=== PATIENT | female | born 1985 | race Caucasian/White ===

== ENCOUNTER 2021-02-09 12:44 | Emergency (ER) | payer SELFPAY ==
[~2021-02-09] VITALS: Ht 149.9 cm; Wt 47.6 kg
--- NOTE | 2021-02-09 12:49 | ED General ---
General Stated Complaint: WEAKNESS; VOMITING History of Present Illness Date Seen by Provider: Feb 09, 2021 Time Seen by Provider: 12:50 Initial Comments 35-year-old female presents with 2 days of vomiting and feels she is dehydrated. Patient's grandmother 2 days ago and asked when symptoms started. Patient provides limited HPI and history. Patient appears to have some slight confusion/altered mental status versus may be developmental delay but we have no prior history to compare with. Patient looks off to the right. Patient denies abdominal pain. Patient reports that she is used to do a lot of alcohol in the past but denies any recent. She will not answer when asked about any drug use. Patient denies any medicine or medical history. Patient ambulated to the cot from EMS with no difficulties Allergies and Home Medications Allergies Coded Allergies: No Known Drug Allergies (Unverified , 02/09/21) Patient Home Medication List Home Medication List Reviewed: Yes Review of Systems Review of Systems Constitutional: chills, malaise EENTM: no symptoms reported Respiratory: no symptoms reported Cardiovascular: no symptoms reported Gastrointestinal: No abdominal pain; nausea, vomiting Musculoskeletal: no symptoms reported Skin: no symptoms reported Psychiatric/Neurological: No Symptoms Reported Hematologic/Lymphatic: No Symptoms Reported Physical Exam Vital Signs Vital Signs - First Documented 02/09/21 12:45 Temp 36.7 Pulse 102 Resp 18 B/P (MAP) 136/90 (105) Pulse Ox 99 O2 Delivery Room Air Capillary Refill : Height, Weight, BMI Height: '" Weight: lbs. oz. kg; BMI Method: General Appearance: Thin, Other (Patient seems confused, keeps her gaze shift rightward. ) Respiratory: Lungs Clear, Normal Breath Sounds Cardiovascular: Regular Rate, Rhythm, No Edema Gastrointestinal: Non Tender, Soft Extremity: Normal Capillary Refill Neurologic/Psychiatric: No Motor/Sensory Deficits, Other (Confused/altered mental versus possible developmental delay, severe depression) Skin: Normal Color, Warm/Dry Progress/Results/Core Measures Suspected Sepsis SIRS Temperature: Pulse: Respiratory Rate: Laboratory Tests 02/09/21 12:53: White Blood Count 8.8 Blood Pressure / Mean: Laboratory Tests 02/09/21 12:53: Creatinine 0.50L, Platelet Count 259, Total Bilirubin 0.5 Results/Orders Lab Results Laboratory Tests Test 02/09/21 12:50 02/09/21 12:53 02/09/21 13:28 Range/Units Glucometer 96 70-110 MG/DL White Blood Count 8.8 4.3-11.0 10^3/uL Red Blood Count 4.72 4.35-5.85 10^6/uL Hemoglobin 13.9 11.5-16.0 G/DL Hematocrit 41 35-52 % Mean Corpuscular Volume 88 80-99 FL Mean Corpuscular Hemoglobin 29 25-34 PG Mean Corpuscular Hemoglobin Concent 34 32-36 G/DL Red Cell Distribution Width 12.6 10.0-14.5 % Platelet Count 259 130-400 10^3/uL Mean Platelet Volume 9.8 7.4-10.4 FL Immature Granulocyte % (Auto) 0 % Neutrophils (%) (Auto) 72 42-75 % Lymphocytes (%) (Auto) 20 12-44 % Monocytes (%) (Auto) 8 0-12 % Eosinophils (%) (Auto) 0 0-10 % Basophils (%) (Auto) 0 0-10 % Neutrophils # (Auto) 6.3 1.8-7.8 X 10^3 Lymphocytes # (Auto) 1.7 1.0-4.0 X 10^3 Monocytes # (Auto) 0.7 0.0-1.0 X 10^3 Eosinophils # (Auto) 0.0 0.0-0.3 10^3/uL Basophils # (Auto) 0.0 0.0-0.1 10^3/uL Immature Granulocyte # (Auto) 0.0 0.0-0.1 10^3/uL Sodium Level 140 135-145 MMOL/L Potassium Level 3.6 3.6-5.0 MMOL/L Chloride Level 106 98-107 MMOL/L Carbon Dioxide Level 23 21-32 MMOL/L Anion Gap 11 5-14 MMOL/L Blood Urea Nitrogen 15 7-18 MG/DL Creatinine 0.50 L 0.60-1.30 MG/DL Estimat Glomerular Filtration Rate 139 BUN/Creatinine Ratio 30 Glucose Level 102 70-105 MG/DL Calcium Level 8.8 8.5-10.1 MG/DL Corrected Calcium 8.9 8.5-10.1 MG/DL Total Bilirubin 0.5 0.1-1.0 MG/DL Aspartate Amino Transf (AST/SGOT) 15 5-34 U/L Alanine Aminotransferase (ALT/SGPT) 16 0-55 U/L Alkaline Phosphatase 41 40-136 U/L C-Reactive Protein < 0.30 <0.50 MG/DL Total Protein 6.6 6.4-8.2 GM/DL Albumin 3.9 3.2-4.5 GM/DL Lipase 23 8-78 U/L Serum Alcohol < 10 <10 MG/DL My Orders Orders - BANKS,SHAI L DO Alcohol (02/09/21 12:49) Cbc With Automated Diff (02/09/21 12:49) Comprehensive Metabolic Panel (02/09/21 12:49) Drug Screen Stat (Urine) (02/09/21 12:49) Hcg,Qualitative Urine (02/09/21 12:49) Lipase (02/09/21 12:49) Ua Culture If Indicated (02/09/21 12:49) Accucheck Stat ONCE (02/09/21 12:49) Crp Fs (02/09/21 12:49) Ct Head Wo (02/09/21 12:53) Covid 19 Inhouse Test (02/09/21 12:56) Levetiracetam Injection (Keppra Injectio (02/09/21 13:45) Medications Given in ED Current Medications Medications Dose Ordered Sig/Karey Route Start Time Stop Time Status Last Admin Dose Admin Levetiracetam 1000 mg/Sodium Chloride 110 ml @ 440 mls/hr ONCE ONCE IV 02/09/21 13:45 02/09/21 13:56 DC 02/09/21 13:49 440 MLS/HR Vital Signs/I&O 02/09/21 02/09/21 12:45 13:52 Temp 36.7 Pulse 102 79 Resp 18 18 B/P (MAP) 136/90 (105) 163/63 Pulse Ox 99 100 O2 Delivery Room Air Room Air Capillary Refill : Progress Note : Progress Note Patient with intracerebral bleed. Discussed with Dr. Christensen [facility], she would like 1 g of Keppra given. Patient will go via EMS due to helicopter availability limited with no available helicopter for at least 45 minutes. Patient was guarded and critical but stable upon transfer. Critical Care Note Critical Care Total Time (minutes) 35 Departure Impression Primary Impression: Intracerebral hemorrhage Qualified Codes: I61.9 - Nontraumatic intracerebral hemorrhage, unspecified Disposition: 02 XFER SHT-TRM HOSP Condition: Critical Transfer Transfer Reason: Exceeds level of care Time Spoke to Accepting Phy: 13:29 Transfer Progress Notes pt accepted by Dr Donaldson, please give 1 gram keppra and emergent transfer to [facility] Transfer Facility: [facility] Method of Transfer: EMS SHAI BANKS DO Feb 09, 2021 12:49
[2021-02-09 12:59] LABS: HEMATOCRIT 41 % (35-52); HEMOGLOBIN 13.9 G/DL (11.5-16.0); MEAN CORPUSCULAR HEMOGLOBIN 29 PG (25-34); MEAN CORPUSCULAR HGB CONC 34 G/DL (32-36); MEAN CORPUSCULAR VOLUME 88 FL (80-99); MEAN PLATELET VOLUME 9.8 FL (7.4-10.4); PLATELET COUNT 259 10^3/uL (130-400); WHITE BLOOD COUNT 8.8 10^3/uL (4.3-11.0)
[2021-02-09 13:00] LABS: EOSINOPHILS % (AUTO) 0 % (0-10); LYMPHOCYTES % (AUTO) 20 % (12-44); MONOCYTES % (AUTO) 8 % (0-12); NEUTROPHILS % (AUTO) 72 % (42-75)
[2021-02-09 13:01] LABS: BASOPHILS % (AUTO) 0 % (0-10); LYMPHOCYTES # (AUTO) 1.7 X 10^3 (1.0-4.0); MONOCYTES # (AUTO) 0.7 X 10^3 (0.0-1.0); NEUTROPHILS # (AUTO) 6.3 X 10^3 (1.8-7.8)
[2021-02-09 13:17] LABS: ALKALINE PHOSPHATASE 41 U/L (40-136); BILIRUBIN,TOTAL 0.5 MG/DL (0.1-1.0); BUN/CREATININE RATIO 30; CALCIUM 8.8 MG/DL (8.5-10.1); CARBON DIOXIDE 23 MMOL/L (21-32); CHLORIDE 106 MMOL/L (98-107); GFR ESTIMATED 139; GLUCOSE 102 MG/DL (70-105); POTASSIUM 3.6 MMOL/L (3.6-5.0); SODIUM 140 MMOL/L (135-145)
[2021-02-09 13:18] LABS: ALANINE AMINOTRANSFERASE 16 U/L (0-55); ALBUMIN 3.9 GM/DL (3.2-4.5); LIPASE 23 U/L (8-78); TOTAL PROTEIN 6.6 GM/DL (6.4-8.2)
--- NOTE | 2021-02-09 13:32 | Diagnostic Imaging Report ---
EXAMINATION: CT head without contrast. TECHNIQUE: Multiple contiguous axial images were obtained through the brain without the use of intravenous contrast. All CT scans use one or more of the following dose optimizing techniques: automated exposure control, MA and/or KvP adjustment based on patient size and exam type or iterative reconstruction. HISTORY: Altered mental status. Left-sided weakness. Slurred speech. COMPARISON: None available. FINDINGS: Large intraparenchymal hemorrhage is seen in the right frontal lobe measuring 3.5 x 2.9 cm and 4.1 cm craniocaudal. There is surrounding edema and right to left midline shift measuring 0.6 cm. No uncal or tonsillar herniation is seen at this time. No evidence of acute hydrocephalus or trapped ventricle. The orbits are normal. Paranasal sinuses are normal. Mastoid air cells are clear. No soft tissue abnormality is seen. No osseus lesions or fractures are seen. IMPRESSION: 1. Large intra-parenchymal hemorrhage involving the right frontal lobe with associated right to left midline shift of 0.6 cm. Recommend urgent neurosurgical consultation and further evaluation with MRI brain with and without contrast to evaluate for underlying hemorrhagic mass. Findings were called to the Emergency department at 1:25 PM on 02/09/[address] René Barksdale. Dictated by: Dictated on workstation # [id number]
[2021-02-09 13:52] VITALS: BP 163/63
== END 2021-02-09 13:52 | disposition short-term general hospital (02) ==
LOC: ER FS 12:46
DX: I61.9 Nontraumatic intracerebral hemorrhage, unspecified (principal)
CPT/HCPCS: 70450; 80053; 82947; 83690; 86141; 87636; 99285; G0480; 80320

== ENCOUNTER 2021-11-28 08:21 | Emergency (ER) | payer MEDICAID, OTHER ==
[~2021-11-28] VITALS: Ht 147.3 cm; Wt 47.6 kg
[2021-11-28] MEDS ORDERED: ONDANSETRON 4 MG/2 ML (SDV) Z0FRAN IVP ONE (09:15)
[2021-11-28] MEDS ORDERED: NS IV 500 ML 500 ML IV ONE (09:15)
[2021-11-28] MEDS ORDERED: LORazepam INJ 2 MG/ML (ATIVAN) VIAL IVP ONE (09:15)
--- NOTE | 2021-11-28 09:16 | ED General ---
General Chief Complaint: General Problems/Pain Stated Complaint: SHABBIR ARM NUMBNESS; AMS Nursing Triage Note: PT AMBULATE TO [facility] WITHOUT DIFFICULTY WITH C/O BODY FEELING HEAVY AND BILAT ARM NUMBNESS X2 DAYS. PT REPORT HX OF STROKE. Source of Information: Patient Exam Limitations: No Limitations History of Present Illness Date Seen by Provider: November 28, 2021 Time Seen by Provider: 08:47 Initial Comments Patient presents ER by private conveyance with her significant other chief complaint that she has been feeling weak for the past couple days and complaining of some numbness and tingling in her right arm and heaviness. She has a history of hemorrhagic stroke few months prior and got sent to [facility]. She has had follow-up with neurology in [place] and just recently moved back here. She does not have a primary care doctor yet. She is not aware of any reason that contributed to her hemorrhagic stroke. She is not on any medications. She says she does not take Tylenol or Motrin. She is not having any headache or visual disturbances. She was very reluctant to come out here and does not like having IV needles. She has a lot of anxiety but does not take anything for anxiety routinely. She is not dropping things from her hands. She is not having falls from weakness. She is not having urinary incontinence or dysuria. She is had no fevers or chills cough but she does states she feels short of breath and occasionally nauseated. No diarrhea or constipation. Very poor appetite and her significant other has been giving her Ensure shakes. She states she did have a tick on her abdomen in the epigastric region in the last week but she has not had any rash with it. She does not drink from unsafe water sources or during a camping. She says she has been out walking a lot lately and does not wear sunscreen and her significant other states that she has been listless and asked him what to do so he told her to go for a walk and he says she just walked around in a [place] outside before he stopped her and she said she did not know what else to do. Allergies and Home Medications Allergies Coded Allergies: No Known Drug Allergies (Unverified , 02/09/21) Patient Home Medication List Home Medication List Reviewed: Yes Doxycycline Hyclate (Doxycycline Hyclate) 100 Mg Tablet, 100 MG PO BID Prescribed by: CA DORAN on 11/28/211106 Ondansetron (Ondansetron Odt) 4 Mg Tab.rapdis, 4 MG PO Q6H PRN for NAUSEA/VOMITING Prescribed by: CA DORAN on 11/28/211106 Review of Systems Review of Systems Constitutional: No chills, No diaphoresis EENTM: No ear discharge, No ear pain Respiratory: No cough, No short of breath Cardiovascular: No chest pain, No palpitations Gastrointestinal: see HPI; No abdominal pain, No constipation, No diarrhea; nausea, vomiting (X1 today) Genitourinary: No discharge, No dysuria Musculoskeletal: No back pain, No joint pain Skin: see HPI; No rash (Tick bite on the epigastric region) Psychiatric/Neurological: Anxiety; Denies Depressed All Other Systems Reviewed Negative Unless Noted: Yes Past Myafsbq-Vjtwjq-Kclean Hx Patient Social History Tobacco Use?: No Smoking Status: Never a Smoker Smokeless Tobacco Frequency: Never a User Use of E-Cig and/or Vaping dev: No Use of E-Cig and/or Vaping Nishant: Never a User Substance use?: No Alcohol Use?: No Pt feels they are or have been: No Immunizations Up To Date COVID19 Vaccine Male Infertility Specialist: MODERNA Physical Exam Vital Signs Vital Signs - First Documented 11/28/21 08:28 Temp 36.8 Pulse 67 Resp 16 B/P (MAP) 131/82 (98) O2 Delivery Room Air Capillary Refill : Less Than 3 Seconds Height, Weight, BMI Height: '" Weight: lbs. oz. kg; 21.00 BMI Method: General Appearance: WD/WN, Anxious, Mild Distress Eyes: Bilateral Eye Normal Inspection, Bilateral Eye PERRL, Bilateral Eye EOMI HEENT: PERRL/EOMI, TMs Normal, Normal ENT Inspection; No Pharynx Normal (Dry oral mucosa without erythema or tonsillar enlargement), No Moist Mucous Membranes Neck: Full Range of Motion, Normal Inspection, Non Tender, Supple Respiratory: Lungs Clear, Normal Breath Sounds, No Accessory Muscle Use, No Respiratory Distress Cardiovascular: Regular Rate, Rhythm, No Edema, Normal Peripheral Pulses Gastrointestinal: Normal Bowel Sounds, Non Tender, Soft Back: Normal Inspection, No Vertebral Tenderness Extremity: Normal Capillary Refill, Normal Inspection, Normal Range of Motion Neurologic/Psychiatric: Alert, Oriented x3, No Motor/Sensory Deficits, Normal Mood/Affect, tire repairman II-XII Norm as Tested, Other (Bilateral upper extremities motor strength equal, right lower extremity 4 out of 5 versus 5 out of 5 in the left extremity.) Skin: Warm/Dry, Erythema (Sunburn on the sun exposed surfaces with some peeling of the skin. The scalp has some sunburn as well. No bullae. There is a small erythematous scab on her epigastric abdomen consistent with a arthropod bite and small not recent ecchymoses over the left ASIS) Progress/Results/Core Measures Suspected Sepsis SIRS Temperature: Pulse: 67 Respiratory Rate: 16 Laboratory Tests 11/28/21 09:23: White Blood Count 6.6 Blood Pressure 131 /82 Mean: 98 Laboratory Tests 11/28/21 09:23: Creatinine 0.61, Platelet Count 247, Total Bilirubin 0.7 Results/Orders Lab Results Laboratory Tests Test 11/28/21 09:23 11/28/21 09:42 Range/Units White Blood Count 6.6 4.3-11.0 10^3/uL Red Blood Count 4.76 3.80-5.11 10^6/uL Hemoglobin 14.1 11.5-16.0 g/dL Hematocrit 40 35-52 % Mean Corpuscular Volume 84 80-99 fL Mean Corpuscular Hemoglobin 30 25-34 pg Mean Corpuscular Hemoglobin Concent 35 32-36 g/dL Red Cell Distribution Width 12.3 10.0-14.5 % Platelet Count 247 130-400 10^3/uL Mean Platelet Volume 9.9 9.0-12.2 fL Immature Granulocyte % (Auto) 0 % Neutrophils (%) (Auto) 68 42-75 % Lymphocytes (%) (Auto) 18 12-44 % Monocytes (%) (Auto) 12 0-12 % Eosinophils (%) (Auto) 1 0-10 % Basophils (%) (Auto) 1 0-10 % Neutrophils # (Auto) 4.5 1.8-7.8 10^3/uL Lymphocytes # (Auto) 1.2 1.0-4.0 10^3/uL Monocytes # (Auto) 0.8 0.0-1.0 10^3/uL Eosinophils # (Auto) 0.1 0.0-0.3 10^3/uL Basophils # (Auto) 0.0 0.0-0.1 10^3/uL Immature Granulocyte # (Auto) 0.0 0.0-0.1 10^3/uL Sodium Level 133 L 135-145 MMOL/L Potassium Level 3.5 L 3.6-5.0 MMOL/L Chloride Level 94 L 98-107 MMOL/L Carbon Dioxide Level 27 21-32 MMOL/L Anion Gap 12 5-14 MMOL/L Blood Urea Nitrogen 11 7-18 MG/DL Creatinine 0.61 0.60-1.30 MG/DL Estimat Glomerular Filtration Rate 117 BUN/Creatinine Ratio 18 Glucose Level 110 H 70-105 MG/DL Calcium Level 8.7 8.5-10.1 MG/DL Corrected Calcium 8.5 8.5-10.1 MG/DL Total Bilirubin 0.7 0.1-1.0 MG/DL Aspartate Amino Transf (AST/SGOT) 15 5-34 U/L Alanine Aminotransferase (ALT/SGPT) 15 0-55 U/L Alkaline Phosphatase 37 L 40-136 U/L C-Reactive Protein 0.32 <0.50 MG/DL Total Protein 6.8 6.4-8.2 GM/DL Albumin 4.2 3.2-4.5 GM/DL Urine Color YELLOW Urine Clarity CLEAR Urine pH 6.5 5-9 Urine Specific [place] <=1.005 1.016-1.022 Urine Protein NEGATIVE NEGATIVE Urine Glucose (UA) NEGATIVE NEGATIVE Urine Ketones TRACE H NEGATIVE Urine Nitrite NEGATIVE NEGATIVE Urine Bilirubin NEGATIVE NEGATIVE Urine Urobilinogen 0.2 < = 1.0 MG/DL Urine Leukocyte Esterase NEGATIVE NEGATIVE Urine RBC (Auto) TRACE-I H NEGATIVE Urine RBC RARE /HPF Urine WBC RARE /HPF Urine Squamous Epithelial Cells 0-2 /HPF Urine Crystals NONE /LPF Urine Bacteria NEGATIVE /HPF Urine Casts NONE /LPF Urine Mucus NEGATIVE /LPF Urine Yeast RARE BUDDING /HPF Urine Culture Indicated NO My Orders Orders - CA DORAN Ed Iv/Invasive Line Start (11/28/21 09:03) Ns Iv 500 Ml (Sodium Chloride 0.9%) (11/28/21 09:15) Lorazepam Injection (Ativan Injection) (11/28/21 09:15) Cbc With Automated Diff (11/28/21 09:03) Comprehensive Metabolic Panel (11/28/21 09:03) Crp Fs (11/28/21 09:03) Tick Panel With Lyme Eia (11/28/21 09:03) Ct Head Wo (11/28/21 09:03) Chest 1 View Ap/Pa Only (11/28/21 09:03) Ua Culture If Indicated (11/28/21 09:03) Urine Bedside (11/28/21 09:03) Ondansetron Injection (Zofran Injectio (11/28/21 09:15) Ondansetron Injection (Zofran Injectio (11/28/21 09:18) Medications Given in ED Current Medications Medications Dose Ordered Sig/Karey Route Start Time Stop Time Status Last Admin Dose Admin Lorazepam 0.25 mg ONCE ONCE IVP 11/28/21 09:15 11/28/21 09:16 DC 11/28/21 09:19 0.25 MG Ondansetron HCl 4 mg ONCE ONCE IVP 11/28/21 09:15 11/28/21 09:21 DC 11/28/21 09:19 4 MG Sodium Chloride 500 ml @ 0 mls/hr Q0M ONCE IV 11/28/21 09:15 11/28/21 09:16 DC 11/28/21 09:20 999 MLS/HR Vital Signs/I&O 11/28/21 08:28 Temp 36.8 Pulse 67 Resp 16 B/P (MAP) 131/82 (98) O2 Delivery Room Air Capillary Refill : Less Than 3 Seconds Blood Pressure Mean: 98 Progress Note #1: Time: 09:20 Progress Note Sun sickness or heat exposure is a possibility to explain her symptoms. Because of her history of bleed we will get another CT of her head. Plan to give her 10mL/kg fluid bolus, 500 cc to help rehydrate her, collect some urine labs and a tick panel. Zofran for her nausea. She would like something for her anxiety so quarter milligram IV Ativan has been ordered. Progress Note #2: Time: 11:03 Progress Note Patient is feeling significantly better after the IV fluids and nausea medicine. She is ready to go home and tolerating oral fluids. We are going to put her on doxycycline for 14 days while her tick panel is coming back. Return precautions discussed. Encouraged to establish care with a primary care provider at her earliest convenience. Diagnostic Imaging Diagonstic Imaging: Xray Plain Films/CT/US/NM/MRI: chest Comments [facility] [place], [place] NAME: ERLINDA COPE MED REC#: [id number] PT STATUS: REG ER : 1985 PHYSICIAN: CA DORAN MD ADMIT DATE: 11/28/21/ER FS Draft Date of Exam:11/28/21 CHEST 1 VIEW AP/PA ONLY INDICATION: Bilateral arm weakness, confusion. FINDINGS: The lungs are clear. There is no failure, effusion or pneumothorax. IMPRESSION: No acute appearing abnormality. Dictated on workstation # [id number] Dict: 11/28/21 1002 Trans: 11/28/21 [facility] ARSENIO [id number] Interpreted by: VERNON JIMÉNEZ Electronically signed by: Reviewed: Reviewed by Ct Diagonstic Imaging: CT Plain Films/CT/US/NM/MRI: head Comments [facility] [place] NAME: ERLINDA COPE MED REC#: [id number] PT STATUS: REG ER : 1985 PHYSICIAN: CA DORAN MD ADMIT DATE: 11/28/21/ER FS Draft Date of Exam:11/28/21 CT HEAD WO PROCEDURE: CT head without contrast. TECHNIQUE: Multiple contiguous axial images were obtained through the brain without the use of intravenous contrast. Auto Exposure Controls were utilized during the CT exam to meet ALARA standards for radiation dose reduction. INDICATION: Confusion, altered mental status, weakness COMPARISON: February 09, 2021 FINDINGS: Focal encephalomalacia is identified within the right frontal lobe related to temporal evolution of previously noted hemorrhage within the right frontal lobe noted approximately one year prior. This has resulted in mild ex vacuo dilatation of the right lateral ventricle. No current intracranial hemorrhage. No intracranial mass, mass effect, midline shift, herniation, obstructive hydrocephalus, or suspicious extra-axial fluid collection. No definite CT evidence of an acute ischemic infarction. The orbits are unremarkable. The paranasal sinuses are clear. The calvarium and extra-calvarial soft tissues are unremarkable. IMPRESSION: No acute intracranial abnormality. Temporal evolution of previously noted right frontal lobe intraparenchymal hematoma seen nearly one year ago with resultant underlying encephalomalacia within the region. Dictated on workstation # [id number] Dict: 11/28/21 1000 Trans: 11/28/21 1009 ARSENIO [id number] Interpreted by: SERGO TRAN MD Electronically signed by: Reviewed: Reviewed by Me Departure Impression Primary Impression: Heat exhaustion Qualified Codes: T67.5XXA - Heat exhaustion, unspecified, initial encounter Additional Impression: Tick bite of abdominal wall Qualified Codes: S30.861A - Insect bite (nonvenomous) of abdominal wall, initial encounter; W57.XXXA - Bitten or stung by nonvenomous insect and other nonvenomous arthropods, initial encounter Disposition: 01 HOME, SELF-CARE Condition: Improved Departure-Patient Inst. Decision time for Depature: 11:00 Referrals: NO,LOCAL PHYSICIAN (PCP/Family) Primary Care Physician Patient Instructions: Heat Exhaustion and Heat Stroke (DC), Insect Bites and Stings (DC) Add. Discharge Instructions: Make sure you are drinking plenty of fluids. Water is good but I also encourage once or twice a day for the next couple days that you drinks sports drinks such as Gatorade or Powerade. Ondansetron 1 tablet every 6 hours under the tongue as necessary for nausea and/or vomiting. Return to the ER for significantly worsening symptoms or inability to keep fluids down. Doxycycline 1 capsule twice a day for 14 days while we are waiting on the test results from your tick panel. Try and stay out of the sun and keep in air conditioning during the hot part of the day for the next week. Use suntan lotion with at least 15 SPF daily. All discharge instructions reviewed with patient and/or family. Voiced understanding. Scripts Lorazepam (Ativan) 0.5 Mg Tablet 0.5 MG PO TID PRN for ANXIETY for 7 Days, #10 TAB 0 Refills Prov: CA DORAN 11/28/21 Ondansetron (Ondansetron Odt) 4 Mg Tab.rapdis 4 MG PO Q6H PRN for NAUSEA/VOMITING, #8 TAB 0 Refills Prov: CA DORAN 11/28/21 Doxycycline Hyclate (Doxycycline Hyclate) 100 Mg Tablet 100 MG PO BID for 14 Days, #28 TAB 0 Refills Prov: CA DORAN 11/28/21 CA DORAN November 28, 2021 09:16
[2021-11-28] MEDS ORDERED: ONDANSETRON 4 MG/2 ML (SDV) Z0FRAN ONE (09:18)
[2021-11-28 09:37] LABS: BASOPHILS % (AUTO) 1 % (0-10); EOSINOPHILS # (AUTO) 0.1 10^3/uL (0.0-0.3); EOSINOPHILS % (AUTO) 1 % (0-10); HEMATOCRIT 40 % (35-52); HEMOGLOBIN 14.1 g/dL (11.5-16.0); LYMPHOCYTES # (AUTO) 1.2 10^3/uL (1.0-4.0); LYMPHOCYTES % (AUTO) 18 % (12-44); MEAN CORPUSCULAR HEMOGLOBIN 30 pg (25-34); MEAN CORPUSCULAR HGB CONC 35 g/dL (32-36); MEAN CORPUSCULAR VOLUME 84 fL (80-99); MEAN PLATELET VOLUME 9.9 fL (9.0-12.2); MONOCYTES # (AUTO) 0.8 10^3/uL (0.0-1.0); MONOCYTES % (AUTO) 12 % (0-12); NEUTROPHILS # (AUTO) 4.5 10^3/uL (1.8-7.8); NEUTROPHILS % (AUTO) 68 % (42-75); PLATELET COUNT 247 10^3/uL (130-400); WHITE BLOOD COUNT 6.6 10^3/uL (4.3-11.0)
[2021-11-28 09:53] LABS: BILIRUBIN,URINE NEGATIVE (NEGATIVE); CLARITY,URINE CLEAR; COLOR,URINE YELLOW; GLUCOSE, URINE (UA) NEGATIVE (NEGATIVE); KETONES,URINE TRACE (NEGATIVE); LEUKOCYTE ESTERASE ,URINE NEGATIVE (NEGATIVE); NITRITE,URINE NEGATIVE (NEGATIVE); PH,URINE 6.5 (5-9); PROTEIN,URINE NEGATIVE (NEGATIVE)
[2021-11-28 10:03] LABS: ALBUMIN 4.2 GM/DL (3.2-4.5); BILIRUBIN,TOTAL 0.7 MG/DL (0.1-1.0); CALCIUM 8.7 MG/DL (8.5-10.1); CREATININE SERUM 0.61 MG/DL (0.60-1.30); POTASSIUM 3.5 MMOL/L (3.6-5.0); TOTAL PROTEIN 6.8 GM/DL (6.4-8.2)
--- NOTE | 2021-11-28 10:07 | Diagnostic Imaging Report ---
INDICATION: Bilateral arm weakness, confusion. FINDINGS: The lungs are clear. There is no failure, effusion or pneumothorax. IMPRESSION: No acute appearing abnormality. Dictated by: Dictated on workstation # [id number]
--- NOTE | 2021-11-28 10:09 | Diagnostic Imaging Report ---
PROCEDURE: CT head without contrast. TECHNIQUE: Multiple contiguous axial images were obtained through the brain without the use of intravenous contrast. Auto Exposure Controls were utilized during the CT exam to meet ALARA standards for radiation dose reduction. INDICATION: Confusion, altered mental status, weakness COMPARISON: February 09, 2021 FINDINGS: Focal encephalomalacia is identified within the right frontal lobe related to temporal evolution of previously noted hemorrhage within the right frontal lobe noted approximately one year prior. This has resulted in mild ex vacuo dilatation of the right lateral ventricle. No current intracranial hemorrhage. No intracranial mass, mass effect, midline shift, herniation, obstructive hydrocephalus, or suspicious extra-axial fluid collection. No definite CT evidence of an acute ischemic infarction. The orbits are unremarkable. The paranasal sinuses are clear. The calvarium and extra-calvarial soft tissues are unremarkable. IMPRESSION: No acute intracranial abnormality. Temporal evolution of previously noted right frontal lobe intraparenchymal hematoma seen nearly one year ago with resultant underlying encephalomalacia within the region. Dictated by: Dictated on workstation # [id number]
[2021-11-28 10:13] LABS: BACTERIA,URINE NEGATIVE /HPF; RBC,URINE RARE /HPF; SQUAMOUS EPITHELIAL CELL,UR 0-2 /HPF; WBC,URINE RARE /HPF
[2021-11-28 10:14] LABS: YEAST,URINE RARE BUDDING /HPF
[2021-11-28] MEDS ORDERED: ONDA4TAB11 PO (11:07)
[2021-11-28] MEDS ORDERED: DOXY100T2 PO (11:07)
[2021-11-28 11:22] VITALS: BP 124/72
[2021-11-28] MEDS ORDERED: LORA-404 PO (11:23)
== END 2021-11-28 11:22 | disposition home or self-care (01) ==
LOC: EDUNIT# 08:21 → ER FS 08:24
DX: T67.5XXA Heat exhaustion, unspecified, initial encounter (principal); S30.861A Insect bite (nonvenomous) of abdominal wall, initial encounter; Z86.73 Personal history of transient ischemic attack (TIA), and cerebral infarction without residual deficits; W57.XXXA Bitten or stung by nonvenomous insect and other nonvenomous arthropods, initial encounter; X30.XXXA Exposure to excessive natural heat, initial encounter
CPT/HCPCS: 36415; 70450; 71045; 80053; 81000; 84703; 85025; 86141; 86618; 86666; 86668; 86757

== ENCOUNTER 2021-12-03 16:12 | Emergency (ER) | payer MEDICAID ==
[~2021-12-03] VITALS: Ht 147.3 cm; Wt 44.1 kg
[~2021-12-03 16:12] MED LIST: DOXY100T2 PO; LORA-404 PO; ONDA4TAB11 PO
[2021-12-03 16:17] VITALS: BP 113/82
--- NOTE | 2021-12-03 16:37 | ED Psychosocial ---
General Chief Complaint: Psych/Social Disorder Stated Complaint: MENTAL KAITLYN SCREENING Source: patient, other (friend) Exam Limitations: no limitations (MARCELLUS ZUNIGA MD) History of Present Illness Date Seen by Provider: December 03, 2021 Time Seen by Provider: 16:13 Initial Comments 36-year-old female with past medical history of a spontaneous brain bleed roughly a year ago coming in with friend that she is staying with due to abnormal behavior. He is noted that when she was in [place] with her family she would throw food away because she thought it was poisoned. Family would go and buy new food and she would do this again. Because of this she has been eating significantly less. She moved down here with a friend to try to see if things could be better. He says she essentially refuses to eat during the daytime, and sometimes will eat at night. He has been giving her some ensures over the past few days to try to get her some nutrition. She says she will drink water, but she prefers a bit bottled. He says that she has been displaying a lot of unusual behavior such as if he asked her to clean something, she will clean it for hours until he notices she still cleaning it and tells her she can stop. She asked the other day what she could do that day, and he said she could relax or go take a walk. He says she was found walking outside [place] with a bad sunburn and no sunscreen. She has no thoughts to harm herself or harm others, but she is unsure why she gets these intrusive thoughts to do these things. She does not take any medicines daily. She does not use any drugs or drink alcohol. (MARCELLUS ZUNIGA MD) Allergies and Home Medications Allergies Coded Allergies: No Known Drug Allergies (Unverified , 02/09/21) Patient Home Medication List Home Medication List Reviewed: Yes (MARCELLUS ZUNIGA MD) Doxycycline Hyclate (Doxycycline Hyclate) 100 Mg Tablet, 100 MG PO BID Prescribed by: CA DORAN on 11/28/21 1107 Lorazepam (Ativan) 0.5 Mg Tablet, 0.5 MG PO TID PRN for ANXIETY Prescribed by: CA DORAN on 11/28/21 1124 Ondansetron (Ondansetron Odt) 4 Mg Tab.rapdis, 4 MG PO Q6H PRN for NAUSEA/VOMITING Prescribed by: CA DORAN on 11/28/21 1107 Review of Systems Constitutional: No chills, No fever EENTM: No blurred vision Respiratory: No cough, No short of breath Cardiovascular: No chest pain Gastrointestinal: No abdominal pain, No diarrhea, No nausea, No vomiting Genitourinary: no symptoms reported Musculoskeletal: no symptoms reported Skin: no symptoms reported Psychiatric/Neurological: Denies Seizure (MARCELLUS ZUNIGA MD) All Other Systems Reviewed Negative Unless Noted: Yes (MARCELLUS ZUNIGA MD) Past Cmdxwwn-Ptupzo-Ksuvoi Hx Patient Social History Tobacco Use?: No (MARCELLUS ZUNIGA MD) Past Medical History Surgeries: No (MARCELLUS ZUNIGA MD) Physical Exam Vital Signs - First Documented 12/03/21 12/04/21 16:17 21:28 Temp 36.9 Pulse 80 Resp 12 B/P (MAP) 113/82 (92) Pulse Ox 100 O2 Delivery Room Air (MEKHI CUEVA MD) Capillary Refill : (MARCELLUS ZUNIGA MD) Height, Weight, BMI Height: '" Weight: lbs. oz. kg; 21.00 BMI Method: General Appearance: WD/WN, no apparent distress HEENT: PERRL/EOMI, normal ENT inspection, pharynx normal Neck: non-tender, full range of motion, supple, normal inspection Respiratory: chest non-tender, lungs clear, normal breath sounds, no respiratory distress, no accessory muscle use Cardiovascular: regular rate, rhythm, no edema, no murmur Gastrointestinal: normal bowel sounds, non tender, soft; No distended, No guarding, No rebound Extremities: normal range of motion, non-tender, normal inspection, no pedal edema, no calf tenderness, normal capillary refill Neurologic/Psychiatric: building services technician II-XII nml as tested, no motor/sensory deficits, alert, normal mood/affect, oriented x 3 Appearance/Memory: appropriate appearance Behavior/Eye Contact: cooperative, good eye contact Thoughts/Hallucinations: no apparent hallucination Skin: normal color, warm/dry, other (Old sunburn to her shoulders with peeling skin) Lymphatic: no adenopathy (MARCELLUS ZUNIGA MD) Progress/Results/Core Measures Results/Orders Lab Results Laboratory Tests Test 12/03/21 16:24 12/04/21 03:37 Range/Units White Blood Count 6.3 4.3-11.0 10^3/uL Red Blood Count 4.59 3.80-5.11 10^6/uL Hemoglobin 13.7 11.5-16.0 g/dL Hematocrit 39 35-52 % Mean Corpuscular Volume 85 80-99 fL Mean Corpuscular Hemoglobin 30 25-34 pg Mean Corpuscular Hemoglobin Concent 35 32-36 g/dL Red Cell Distribution Width 13.0 10.0-14.5 % Platelet Count 264 130-400 10^3/uL Mean Platelet Volume 9.8 9.0-12.2 fL Immature Granulocyte % (Auto) 0 % Neutrophils (%) (Auto) 59 42-75 % Lymphocytes (%) (Auto) 31 12-44 % Monocytes (%) (Auto) 9 0-12 % Eosinophils (%) (Auto) 1 0-10 % Basophils (%) (Auto) 1 0-10 % Neutrophils # (Auto) 3.7 1.8-7.8 10^3/uL Lymphocytes # (Auto) 1.9 1.0-4.0 10^3/uL Monocytes # (Auto) 0.5 0.0-1.0 10^3/uL Eosinophils # (Auto) 0.1 0.0-0.3 10^3/uL Basophils # (Auto) 0.0 0.0-0.1 10^3/uL Immature Granulocyte # (Auto) 0.0 0.0-0.1 10^3/uL Urine Color YELLOW Urine Clarity SL CLOUDY Urine pH 6.5 5-9 Urine Specific [place] 1.020 1.016-1.022 Urine Protein NEGATIVE NEGATIVE Urine Glucose (UA) NEGATIVE NEGATIVE Urine Ketones 1+ H NEGATIVE Urine Nitrite NEGATIVE NEGATIVE Urine Bilirubin NEGATIVE NEGATIVE Urine Urobilinogen 0.2 < = 1.0 MG/DL Urine Leukocyte Esterase NEGATIVE NEGATIVE Urine RBC (Auto) NEGATIVE NEGATIVE Urine RBC NONE /HPF Urine WBC NONE /HPF Urine Squamous Epithelial Cells RARE /HPF Urine Crystals NONE /LPF Urine Bacteria MODERATE H /HPF Urine Casts NONE /LPF Urine Mucus MODERATE H /LPF Urine Culture Indicated NO Urine Test NEGATIVE NEGATIVE Sodium Level 144 135-145 MMOL/L Potassium Level 3.9 3.6-5.0 MMOL/L Chloride Level 107 98-107 MMOL/L Carbon Dioxide Level 23 21-32 MMOL/L Anion Gap 14 5-14 MMOL/L Blood Urea Nitrogen 13 7-18 MG/DL Creatinine 0.60 0.60-1.30 MG/DL Estimat Glomerular Filtration Rate 118 BUN/Creatinine Ratio 22 Glucose Level 78 70-105 MG/DL Calcium Level 9.0 8.5-10.1 MG/DL Corrected Calcium 8.8 8.5-10.1 MG/DL Phosphorus Level 3.6 2.3-4.7 MG/DL Magnesium Level 2.4 1.6-2.4 MG/DL Total Bilirubin 0.5 0.1-1.0 MG/DL Aspartate Amino Transf (AST/SGOT) 14 5-34 U/L Alanine Aminotransferase (ALT/SGPT) 22 0-55 U/L Alkaline Phosphatase 36 L 40-136 U/L Total Protein 6.7 6.4-8.2 GM/DL Albumin 4.2 3.2-4.5 GM/DL Salicylates Level < 0.3 L 5.0-20.0 MG/DL Urine Opiates Screen NEGATIVE NEGATIVE Urine Oxycodone Screen NEGATIVE NEGATIVE Urine Methadone Screen NEGATIVE NEGATIVE Urine Propoxyphene Screen NEGATIVE NEGATIVE Acetaminophen Level < 10 L 10-30 UG/ML Urine Barbiturates Screen NEGATIVE NEGATIVE Ur Tricyclic Antidepressants Screen NEGATIVE NEGATIVE Urine Phencyclidine Screen NEGATIVE NEGATIVE Urine Amphetamines Screen NEGATIVE NEGATIVE Urine Methamphetamines Screen NEGATIVE NEGATIVE Urine Benzodiazepines Screen NEGATIVE NEGATIVE Urine Cocaine Screen NEGATIVE NEGATIVE Urine Cannabinoids Screen NEGATIVE NEGATIVE Serum Alcohol < 10 <10 MG/DL SARS-CoV-2 RNA (RT-PCR) Not Detected Not Detecte (MEKHI CUEVA MD) Vital Signs/I&O 12/04/21 12/05/21 21:28 01:40 Temp 36.5 Pulse 60 58 Resp 17 15 B/P (MAP) 131/85 121/90 Pulse Ox 100 100 O2 Delivery Room Air Room Air (MEKHI CUEVA MD) Progress Progress Note : Progress Note 36-year-old female with above history coming in due to delusions of food being poisoned and not wanting to eat as well as obsessive tendencies including the inability to stop cleaning or stop doing anything if she is told. ABCs were intact and vitals were stable on presentation. Physical exam with no concerns. Basic labs including electrolytes reassuring. UDS negative. test negative. EKG normal. Given the story of decreased p.o. intake, she got a liter of IV fluids. However, clinically she does not appear dehydrated, kidney functions normal on labs, and she has moist mucous membranes. The mental health screeners evaluated her and recommended inpatient. COVID testing sent. Awaiting placement at this time. Care signed out to Dr. Cueva. (MARCELLUS ZUNIGA MD) Progress Note #1: Time: 07:28 Progress Note I assumed care of the patient from Dr. Zuniga at shift change at 0700 on 04 Dec 2021. Awaiting Covid swab for [facility] to reach out to facilities about admit for delusional disorder and obsessive compulsive behaviors. At 0728 I spoke with lab at [facility] and the swab was just coming off the device and was Not Detected. Will print the result once it is in the computer so it can be faxed to [facility]. Upon review of her labs and tests as well as exam and history she is medically stable and clear from a medical standpoint to have Mental Health place patient for her Delusional disorder and obsessive compulsive behaviors. Progress Note #2: Progress Note After trying all day with multiple calls to multiple facilities and attempts to place the patient for psychiatric care finally [facility] facility accepted for admission. The attending is Dr. Garza. Patient will be transported by [facility] staff to the facility in [place]. (MEKHI CUEVA MD) Initial ECG Impression Date: December 03, 2021 Initial ECG Impression Time: 16:47 Initial ECG Rate: 63 Initial ECG Rhythm: Normal Sinus Comment Narrow QRS, normal axis, no significant ST changes or T wave abnormalities (MARCELLUS ZUNIGA MD) Departure Impression Primary Impression: Delusional disorder Additional Impression: Obsessive-compulsive behavior Disposition: 65 XFER TO PSYCH HOSP/UNIT Condition: Stable Transfer Transfer Reason: Exceeds level of care (Psychiatric care) Time Spoke to Accepting Phy: 23:[address] Garza accepting physician for pt to come to Psychiatric facility at [facility] Transfer Facility: [facility] Method of Transfer: Private Vehicle ([facility]) (MEKHI CUEVA MD) Departure-Patient Inst. Referrals: NO,LOCAL PHYSICIAN (PCP/Family) Primary Care Physician MARCELLUS ZUNIGA MD December 03, 2021 16:37 MEKHI CUEVA MD December 04, 2021 07:34
[2021-12-03 16:48] LABS: BASOPHILS % (AUTO) 1 % (0-10); EOSINOPHILS # (AUTO) 0.1 10^3/uL (0.0-0.3); EOSINOPHILS % (AUTO) 1 % (0-10); HEMATOCRIT 39 % (35-52); HEMOGLOBIN 13.7 g/dL (11.5-16.0); LYMPHOCYTES # (AUTO) 1.9 10^3/uL (1.0-4.0); LYMPHOCYTES % (AUTO) 31 % (12-44); MEAN CORPUSCULAR HEMOGLOBIN 30 pg (25-34); MEAN CORPUSCULAR HGB CONC 35 g/dL (32-36); MEAN CORPUSCULAR VOLUME 85 fL (80-99); MEAN PLATELET VOLUME 9.8 fL (9.0-12.2); MONOCYTES # (AUTO) 0.5 10^3/uL (0.0-1.0); MONOCYTES % (AUTO) 9 % (0-12); NEUTROPHILS # (AUTO) 3.7 10^3/uL (1.8-7.8); NEUTROPHILS % (AUTO) 59 % (42-75); PLATELET COUNT 264 10^3/uL (130-400); WHITE BLOOD COUNT 6.3 10^3/uL (4.3-11.0)
[2021-12-03 16:51] LABS: BILIRUBIN,URINE NEGATIVE (NEGATIVE); CLARITY,URINE SL CLOUDY; COLOR,URINE YELLOW; GLUCOSE, URINE (UA) NEGATIVE (NEGATIVE); HCG,QUALITATIVE URINE NEGATIVE (NEGATIVE); KETONES,URINE 1+ (NEGATIVE); LEUKOCYTE ESTERASE ,URINE NEGATIVE (NEGATIVE); NITRITE,URINE NEGATIVE (NEGATIVE); PH,URINE 6.5 (5-9); PROTEIN,URINE NEGATIVE (NEGATIVE)
[2021-12-03] MEDS ORDERED: D5 NS 1000 ML IV SOLUTION 1,000 ML IV STA (16:53)
[2021-12-03 17:00] LABS: AMPHETAMINE SCREEN, URINE NEGATIVE (NEGATIVE); BARBITURATE SCREEN URINE NEGATIVE (NEGATIVE); BENZODIAZEPINES SCREEN URINE NEGATIVE (NEGATIVE); CANNABINOID SCREEN, URINE NEGATIVE (NEGATIVE); COCAINE SCREEN URINE NEGATIVE (NEGATIVE); METHADONE STAT NEGATIVE (NEGATIVE); OPIATE SCREEN URINE NEGATIVE (NEGATIVE); OXYCODONE STAT NEGATIVE (NEGATIVE); PROPOXYPHENE STAT NEGATIVE (NEGATIVE); TRICYCLIC ANTIDEPRESSANTS SCRE NEGATIVE (NEGATIVE)
[2021-12-03 17:12] LABS: ALANINE AMINOTRANSFERASE 22 U/L (0-55); ALBUMIN 4.2 GM/DL (3.2-4.5); ALKALINE PHOSPHATASE 36 U/L (40-136); BILIRUBIN,TOTAL 0.5 MG/DL (0.1-1.0); BUN/CREATININE RATIO 22; CARBON DIOXIDE 23 MMOL/L (21-32); CHLORIDE 107 MMOL/L (98-107); GFR ESTIMATED 118; GLUCOSE 78 MG/DL (70-105); POTASSIUM 3.9 MMOL/L (3.6-5.0); SODIUM 144 MMOL/L (135-145); TOTAL PROTEIN 6.7 GM/DL (6.4-8.2)
[2021-12-03 17:13] LABS: ACETAMINOPHEN < 10 UG/ML (10-30); MAGNESIUM 2.4 MG/DL (1.6-2.4); SALICYLATE < 0.3 MG/DL (5.0-20.0)
[2021-12-03 17:19] LABS: BACTERIA,URINE MODERATE /HPF; SQUAMOUS EPITHELIAL CELL,UR RARE /HPF
[2021-12-03 19:23] LABS: PHOSPHORUS 3.6 MG/DL (2.3-4.7)
== END 2021-12-05 01:42 ==
LOC: EDUNIT# 16:12 → ER FS 16:13
DX: F22 Delusional disorders (principal); F42.9 Obsessive-compulsive disorder, unspecified; Z20.822 Contact with and (suspected) exposure to COVID-19; Z32.02 Encounter for pregnancy test, result negative
CPT/HCPCS: 36415; 80053; 80306; 81000; 83735; 84100; 84703; 85025; 93005; 99284; G0480 ×3; 80320; 80329

== ENCOUNTER 2022-01-08 09:58 | Emergency (ER) | payer MEDICAID, OTHER ==
[~2022-01-08] VITALS: Ht 147 cm; Wt 40.8 kg
--- NOTE | 2022-01-08 10:16 | ED General ---
General Chief Complaint: Psych/Social Disorder Stated Complaint: PSYCH EVAL Source of Information: Patient, EMS Exam Limitations: Other (ALEXANDER ENRIQUEZ DO) History of Present Illness Date Seen by Provider: Jan 08, 2022 Time Seen by Provider: 10:00 Initial Comments Patient is a 36-year-old female with history of mental illness who was found to be in a confused nonverbal and uncooperative state wandering in front of a local urgent care. Patient was recently evaluated in this emergency department in transfer to inpatient mental illness facility in [facility]. Patient vital signs are stable, she her airway and breathing is intact, her pupils are pinpoint reactive, blood sugar is normal. She has good hygiene and is appropriately attired. Her hair is shaved with uneven she aly, and an apparent self-administered haircut. History is limited based upon the patient's clinical condition peer Timing/Duration: Other Modifying Factors: improves with Other (ALEXANDER ENRIQUEZ DO) Allergies and Home Medications Allergies Coded Allergies: No Known Drug Allergies (Unverified , 02/09/21) Patient Home Medication List Home Medication List Reviewed: Yes (MEKHI CUEVA MD) Doxycycline Hyclate (Doxycycline Hyclate) 100 Mg Tablet, 100 MG PO BID Prescribed by: CA DORAN on 11/28/21 1107 Lorazepam (Ativan) 0.5 Mg Tablet, 0.5 MG PO TID PRN for ANXIETY Prescribed by: CA DORAN on 11/28/21 1124 Ondansetron (Ondansetron Odt) 4 Mg Tab.rapdis, 4 MG PO Q6H PRN for NAUSEA/VOMITING Prescribed by: CA DORAN on 11/28/21 1107 Review of Systems Review of Systems Constitutional: no symptoms reported unable to obtain ROS as patient is nonverbal and does not answer questions to be able to assess ROS (MEKHI CUEVA MD) Past Kuiohjv-Eopptu-Znykkq Hx Patient Social History Smoking Status: Unknown if Ever Smoked Smokeless Tobacco Frequency: Unknown if Ever Used Use of E-Cig and/or Vaping Nishant: Unknown if Ever Used Substance use?: Unable to obtain Alcohol Use?: Unable to obtain Pt feels they are or have been: Unable to obtain (ALEXANDER ENRIQUEZ DO) Past Medical History Surgery/Hospitalization HX: Stroke Surgeries: No (ALEXANDER ENRIQUEZ DO) Physical Exam Vital Signs Vital Signs - First Documented 01/08/22 01/09/22 09:58 11:20 Temp 36.4 Pulse 75 Resp 14 B/P (MAP) 135/96 (109) Pulse Ox 71 O2 Delivery Room Air (MEKHI CUEVA MD) Vital Signs Capillary Refill : (ALEXANDER ENRIQUEZ DO) Height, Weight, BMI Height: '" Weight: lbs. oz. kg; 20.00 BMI Method: General Appearance: No Apparent Distress Eyes: Bilateral Eye Normal Inspection, Bilateral Eye PERRL, Bilateral Eye EOMI HEENT: PERRL/EOMI, Normal ENT Inspection Neck: Normal Inspection Respiratory: Normal Breath Sounds Cardiovascular: Regular Rate, Rhythm Gastrointestinal: Non Tender, Soft Neurologic/Psychiatric: Alert, Other (ALEXANDER ENRIQUEZ DO) Progress/Results/Core Measures Suspected Sepsis SIRS Temperature: Pulse: Respiratory Rate: Laboratory Tests 01/08/22 10:12: White Blood Count 9.1 Blood Pressure / Mean: Laboratory Tests 01/08/22 10:12: Creatinine 0.66, Platelet Count 324, Total Bilirubin 0.7 (ALEXANDER ENRIQUEZ DO) Results/Orders Lab Results Laboratory Tests Test 01/08/22 10:12 01/08/22 12:41 Range/Units White Blood Count 9.1 4.3-11.0 10^3/uL Red Blood Count 4.85 3.80-5.11 10^6/uL Hemoglobin 14.3 11.5-16.0 g/dL Hematocrit 42 35-52 % Mean Corpuscular Volume 86 80-99 fL Mean Corpuscular Hemoglobin 30 25-34 pg Mean Corpuscular Hemoglobin Concent 34 32-36 g/dL Red Cell Distribution Width 13.2 10.0-14.5 % Platelet Count 324 130-400 10^3/uL Mean Platelet Volume 9.7 9.0-12.2 fL Immature Granulocyte % (Auto) 0 % Neutrophils (%) (Auto) 73 42-75 % Lymphocytes (%) (Auto) 18 12-44 % Monocytes (%) (Auto) 8 0-12 % Eosinophils (%) (Auto) 0 0-10 % Basophils (%) (Auto) 0 0-10 % Neutrophils # (Auto) 6.6 1.8-7.8 10^3/uL Lymphocytes # (Auto) 1.7 1.0-4.0 10^3/uL Monocytes # (Auto) 0.7 0.0-1.0 10^3/uL Eosinophils # (Auto) 0.0 0.0-0.3 10^3/uL Basophils # (Auto) 0.0 0.0-0.1 10^3/uL Immature Granulocyte # (Auto) 0.0 0.0-0.1 10^3/uL Sodium Level 141 135-145 MMOL/L Potassium Level 3.4 L 3.6-5.0 MMOL/L Chloride Level 105 98-107 MMOL/L Carbon Dioxide Level 22 21-32 MMOL/L Anion Gap 14 5-14 MMOL/L Blood Urea Nitrogen 17 7-18 MG/DL Creatinine 0.66 0.60-1.30 MG/DL Estimat Glomerular Filtration Rate 115 BUN/Creatinine Ratio 26 Glucose Level 101 70-105 MG/DL Calcium Level 9.7 8.5-10.1 MG/DL Corrected Calcium 9.3 8.5-10.1 MG/DL Total Bilirubin 0.7 0.1-1.0 MG/DL Aspartate Amino Transf (AST/SGOT) 22 5-34 U/L Alanine Aminotransferase (ALT/SGPT) 48 0-55 U/L Alkaline Phosphatase 57 40-136 U/L Total Protein 7.4 6.4-8.2 GM/DL Albumin 4.5 3.2-4.5 GM/DL Serum Alcohol < 10 <10 MG/DL SARS-CoV-2 RNA (RT-PCR) Not Detected Not Detecte (MEKHI CUEVA MD) My Orders Orders - MEKHI CUEVA MD Hcg,Qualitative Serum (01/09/22 10:58) Straight Cath For Spec.-Adult (01/09/22 10:58) (MEKHI CUEVA MD) Vital Signs/I&O 01/08/22 01/09/22 09:58 11:20 Temp 36.4 36.6 Pulse 75 71 Resp 14 14 B/P (MAP) 135/96 (109) 133/84 Pulse Ox 71 O2 Delivery Room Air Room Air (MEKHI CUEVA MD) Vital Signs/I&O Capillary Refill : (ALEXANDER ENRIQUEZ DO) Progress Note #1: Time: 07:00 Progress Note I assumed care of the patient from Dr. Enriquez at shift change. Patient has been medically cleared by Dr. Enriquez. Awaiting involuntary placement with mental health. Progress Note #2: Time: 10:55 Progress Note Discussed with Dr. John from [facility]. He accepted the patient for transfer but did want test and urine drug screen. Will add these on and may have to straight cath patient to get urine specimen. Progress Note #3: Progress Note Staff from OSH called and said that pt was accepted by Dr. John so they did not have to wait to get a urine specimen. Contact law enforcement for transport of involuntary psychiatric patient to [facility]. (MEKHI CUEVA MD) Departure Communication (Admissions) Patient nonverbal and uncooperative but oriented to her surroundings. She was last seen by friends last night and shaved her head and walked from [place] to [facility]. She has an extensive psychiatric history with recent hospital admission 2 weeks ago in [place]. She will remain in on involun tary hold until she can be adequately placed in a mental health institution. Lab work is normal and reassuring. 06:00 . Patient has been calm and relatively cooperative throughout the evening. She remains nonverbal. Care to be transitioned to oncoming ERP at 07:00 pending disposition (ALEXANDER ENRIQUEZ DO) Impression Primary Impression: Psychosis Qualified Codes: F29 - Unspecified psychosis not due to a substance or known physiological condition Disposition: 65 XFER TO PSYCH HOSP/UNIT Condition: Stable Transfer Transfer Reason: Exceeds level of care (Involuntary Psychiatric care) Time Spoke to Accepting Phy: 10:55 Transfer Progress Notes Discussed with Dr. John and he accepted the patient for transfer. He did request that we have a test and drug screen on the patient. May have to straight cath the patient as she did not want to provide urine specimen. Transfer Facility: [facility] Method of Transfer: Law Enforcement (MEKHI CUEVA MD) Departure-Patient Inst. Referrals: NO,LOCAL PHYSICIAN (PCP/Family) Primary Care Physician ALEXANDER ENRIQUEZ DO Jan 08, 2022 10:16 MEKHI CUEVA MD Jan 09, 2022 10:13
[2022-01-08 10:19] LABS: BASOPHILS % (AUTO) 0 % (0-10); EOSINOPHILS % (AUTO) 0 % (0-10); HEMATOCRIT 42 % (35-52); HEMOGLOBIN 14.3 g/dL (11.5-16.0); LYMPHOCYTES # (AUTO) 1.7 10^3/uL (1.0-4.0); LYMPHOCYTES % (AUTO) 18 % (12-44); MEAN CORPUSCULAR HEMOGLOBIN 30 pg (25-34); MEAN CORPUSCULAR HGB CONC 34 g/dL (32-36); MEAN CORPUSCULAR VOLUME 86 fL (80-99); MEAN PLATELET VOLUME 9.7 fL (9.0-12.2); MONOCYTES # (AUTO) 0.7 10^3/uL (0.0-1.0); MONOCYTES % (AUTO) 8 % (0-12); NEUTROPHILS # (AUTO) 6.6 10^3/uL (1.8-7.8); NEUTROPHILS % (AUTO) 73 % (42-75); PLATELET COUNT 324 10^3/uL (130-400); WHITE BLOOD COUNT 9.1 10^3/uL (4.3-11.0)
[2022-01-08 10:54] LABS: CARBON DIOXIDE 22 MMOL/L (21-32); CHLORIDE 105 MMOL/L (98-107); POTASSIUM 3.4 MMOL/L (3.6-5.0); SODIUM 141 MMOL/L (135-145)
[2022-01-08 10:55] LABS: ALANINE AMINOTRANSFERASE 48 U/L (0-55); ALBUMIN 4.5 GM/DL (3.2-4.5); ALKALINE PHOSPHATASE 57 U/L (40-136); BILIRUBIN,TOTAL 0.7 MG/DL (0.1-1.0); BUN/CREATININE RATIO 26; CALCIUM 9.7 MG/DL (8.5-10.1); CREATININE SERUM 0.66 MG/DL (0.60-1.30); GFR ESTIMATED 115; GLUCOSE 101 MG/DL (70-105); TOTAL PROTEIN 7.4 GM/DL (6.4-8.2)
[2022-01-09 11:20] VITALS: BP 133/84
== END 2022-01-09 12:10 ==
LOC: EDUNIT# 09:58 → ER FS 10:01
DX: F29 Unspecified psychosis not due to a substance or known physiological condition (principal); Z20.822 Contact with and (suspected) exposure to COVID-19
CPT/HCPCS: 36415; 80053; 85025; 87636; 93005; 99283; G0480; 80320